=== PATIENT | male | born 1955 | race Caucasian/White ===

== ENCOUNTER → 2016-07-24 | Outpatient (CLI) | payer BC ==
[~2016-07-24] MED LIST: FISH1CAP15 PO; GLUC1CAP37 PO; HYDR-3730 PO; LORA10TA7 PO; LSNP20T PO; METH-336 PO; METR500T PO; MULT-974 PO; NAPR500T3 PO; OXYC1TAB17 PO; PRAV40TA PO; SULF-222 PO; TRAM50TA2 PO
--- NOTE | 2016-07-24 12:13 | Diagnostic Imaging Report ---
EXAMINATION: Scrotal ultrasound. INDICATION: Left scrotal mass. FINDINGS: The right testicle is 4.5 x 2.6 x 3.4 cm. The left testicle is 4.3 x 2.2 x 3 cm. There is homogeneous echotexture of both testicles with no intratesticular mass. There is a lobulated cystic lesion with septations seen in the right epididymis measuring 2.3 x 1.2 x 1.5 cm with suggestion of thickened septation but no solid mass component or internal vascularity is demonstrated, suggestive of a complete complicated epididymal cyst. Arterial and venous waveforms are demonstrated over both testicles. There is an elongated cystic structure seen measuring 4 x 0.5 x 0.8 cm with surrounding thickened tissue along the left inferior and lateral aspect of the scrotum near the subcutaneous tissues. This may represent an abscess or hematoma. Correlate clinically. IMPRESSION: At the palpable area, there is a subcutaneous elongated centrally cystic lesion measuring 4 x 0.5 x 0.8 cm which may relate to an abscess or hematoma, correlate clinically. Dictated by: Dictated on workstation # [id number]
== END ==
LOC: RAD 11:17
PROVIDERS: ATTEND Nurse Practitioner Family
DX: N50.9 Disorder of male genital organs, unspecified (principal)
CPT/HCPCS: 76870